=== PATIENT | male | born 2000 | race Caucasian/White ===

== ENCOUNTER 2020-09-11 18:24 | Emergency (ER) | payer MEDICAID ==
[~2020-09-11] VITALS: Ht 185.4 cm; Wt 108.9 kg
[2020-09-11 18:42] VITALS: BP 136/77
[2020-09-11] MEDS ORDERED: LIDOCAINE/EPI 1% 1:100000 20 ML VIAL INJ ONE ×2 (18:55→19:58)
--- NOTE | 2020-09-11 20:19 | NUR ---
Dr. Maldonado examining patient.
[2020-09-11 20:20] VITALS: BP 136/77
--- NOTE | 2020-09-11 20:20 | NUR ---
SEE COMPLETE ASSESSMENT
[2020-09-11] MEDS ORDERED: BACITRACIN OINT 500 UNITS/GM PKT TP ONE (20:34)
--- NOTE | 2020-09-11 20:45 | NUR ---
PT RT INDEX FINGER WRAPPED IN GUAZE.
--- NOTE | 2020-09-11 20:47 | NUR ---
Patient discharged with v/s stable. Written and verbal after care instructions given and explained. Patient verbalized understanding. Ambulatory with steady gait. All questions addressed prior to discharge. Advised to follow up with PMD.
== END 2020-09-11 20:47 | disposition home or self-care (01) ==
LOC: MED 18:24
DX: S61.210A Laceration without foreign body of right index finger without damage to nail, initial encounter (principal); W45.8XXA Other foreign body or object entering through skin, initial encounter; Y93.89 Activity, other specified; Y92.89 Other specified places as the place of occurrence of the external cause; Y99.8 Other external cause status
CPT/HCPCS: 12001; 73140; 90471; 90715; 99283; J2001